=== PATIENT | male | born 1980 | race Caucasian/White ===

== ENCOUNTER 2019-03-30 09:57 | Emergency (ER) | payer OTHER ==
--- NOTE | 2019-03-30 11:32 | ED Physician Documentation ---
PD HPI LOWER EXT INJURY - Stated complaint Stated Complaint: LT KNEE PX - Chief complaint Chief Complaint: Trauma Ext - History obtained from History obtained from: Patient - History of Present Illness PD HPI LOW EXT INJURY LOCATION: Left, Knee Type of injury: Other (hit by a cadet at the [employer] yesterday.) Where injury occurred: Work Timing - onset: Yesterday Timing - details: Abrupt onset Pain level max: 8 Pain level now: 3 Improved by: Rest Worsened by: Moving, Palpating Associated symptoms: Swelling. No: Weakness, Numbness, Tingling Recently seen: Emergency Dept (yesterday for same) Review of Systems Constitutional: denies: Fever GI: denies: Vomiting, Diarrhea Skin: denies: Rash PD PAST MEDICAL HISTORY - Past Medical History Past Medical History: No - Past Surgical History Past Surgical History: Yes - Present Medications Home Medications: Ambulatory Orders Medication Instructions Recorded Confirmed No Known Home Medications 02/23/16 02/23/16 Ondansetron Odt [Zofran] 4 mg TL Q6H PRN #30 tablet 02/23/16 Raltegravir [Isentress] 400 mg PO BID #56 tablet 02/23/16 lamiVUDine/ZIDOVUDINE [Combivir] 1 each PO BID #56 tablet 02/23/16 - Allergies Allergies/Adverse Reactions: Allergies Allergy/AdvReac Type Severity Reaction Status Date / Time No Known Drug Allergies Allergy Verified 02/23/16 02:16 - Social History Does the pt smoke?: No Smoking Status: Never smoker Does the pt drink ETOH?: Yes Does the pt have substance abuse?: No - Immunizations Immunizations are current?: Yes - POLST Patient has POLST: No PD ED PE NORMAL - Vitals Vital signs reviewed: Yes - General General: Alert and oriented X 3, No acute distress - HEENT HEENT: Moist mucous membranes - Neck Neck: Supple, no meningeal sign - Derm Derm: Warm and dry - Extremities Extremities: Other (Limited exam of the left knee due to pain. no effusion. Ligaments not tested. Neurovascular intact) Results - Vitals Vitals: Vital Signs - 24 hr 03/30/19 03/30/19 10:16 12:20 Temperature 36.8 C Heart Rate 77 68 Respiratory 15 18 Rate Blood Pressure 164/85 H 132/80 H O2 Saturation 97 98 Oxygen O2 Source Room air PD MEDICAL DECISION MAKING - ED course Complexity details: reviewed old records, considered differential, d/w patient, d/w internet sales consultant ED course: Patient brought an MRI with him from [facility] where he was seen yesterday. This was reviewed by radiology here and confirms an isolated ACL tear. This is complete. I spoke with Dr. Amaya, from orthopedics who does not recommend any sort of brace at this point. The patient is ambulating well on the leg. Will place him on light duty at work and have him follow-up with orthopedics for further care. Patient counseled regarding signs and symptoms for which I believe and urgent re-evaluation would be necessary. Patient with good understanding of and agreement to plan and is comfortable going home at this time This document was made in part using voice recognition software. While efforts are made to proofread this document, sound alike and grammatical errors may occur. Departure - Departure Disposition: 01 Home, Self Care Clinical Impression: ACL tear Qualifiers: Encounter type: initial encounter Laterality: left Qualified Code(s): S83.512A - Sprain of anterior cruciate ligament of left knee, initial encounter Condition: Good Instructions: ED Knee Injury Cruciate Ligament Follow-Up: Randy Ragland MD [Primary Care Provider] - Werner Amaya MD [Provider Admit Priv/Credential] - Within 1 week Comments: Follow-up with orthopedics for further care. Return if you worsen. You do have a complete ACL tear on your MRI from yesterday. You may bear weight as to lerated. A neoprene knee brace may help as well. Do not run, jump or cut on the knee. Forms: Activity restrictions Discharge Date/Time: 03/30/19 12:20
[2019-03-30 12:21] VITALS: BP 132/80
== END 2019-03-30 12:20 | disposition home or self-care (01) ==
LOC: ED 09:57
DX: S83.512A Sprain of anterior cruciate ligament of left knee, initial encounter (principal); W50.0XXA Accidental hit or strike by another person, initial encounter; Y92.89 Other specified places as the place of occurrence of the external cause; Y99.0 Civilian activity done for income or pay
CPT/HCPCS: 99282; 99284